=== PATIENT | male | born 1995 | race Caucasian/White ===

== ENCOUNTER 2023-02-06 09:47 | Emergency (ER) | payer BC ==
[~2023-02-06] VITALS: Ht 170.2 cm; Wt 77.3 kg
[~2023-02-06 09:47] MED LIST: ACET-1079 PO; IBUP100S11 PO
[2023-02-06 10:49] VITALS: BP 124/70
== END 2023-02-06 10:55 | disposition home or self-care (01) ==
LOC: ER 09:47
DX: S83.91XA Sprain of unspecified site of right knee, initial encounter (principal); Z88.6 Allergy status to analgesic agent; X58.XXXA Exposure to other specified factors, initial encounter; Y93.89 Activity, other specified; Y92.89 Other specified places as the place of occurrence of the external cause; Y99.8 Other external cause status
CPT/HCPCS: 73562